=== PATIENT | male | born 1995 | race Caucasian/White ===

== ENCOUNTER 2019-10-13 15:09 | Emergency (ER) | payer OTHER, SELFPAY ==
--- NOTE | ~2019-10-13 | CT_ITS ---
EXAMINATION: CT abdomen pelvis w con DATE: 10/13/2019 16:24 INDICATION: Right lower quadrant abdominal pain. Nausea and diarrhea. TECHNIQUE: Computed tomography (CT) of the abdomen and pelvis was performed with 100 mL Omnipaque 350 intravenous contrast. Automated exposure control and iterative reconstruction technique were employe d. The dose-length product was 293.16 mGy-cm. COMPARISON: None. FINDINGS: The visualized portions of the lung bases are clear without pneumonia or pleural effusion. The heart size is normal. No pericardial effusion. There is a 1.7 cm cyst in the liver. The gallbladd er, spleen, pancreas, adrenal glands, and kidneys are normal. There are no dilated loops of bowel. Th e appendix is normal. There is mild fat stranding involving the greater omentum in right abdomen. The re is trace pelvic ascites. There are no pathologically enlarged lymph nodes. There is mild thoracal lumbar spondylosis. IMPRESSION: 1. Mild fat stranding involving the greater omentum in right abdomen, consistent with edema versus in flammation. Reviewed, dictated and finalized at location A. IMPRESSION: 1. Mild fat stranding involving the greater omentum in right abdomen, consisten t with edema versus inflammation.
[2019-10-13 15:12] VITALS: BP 112/56; PULSE 55; RESP 16; TEMP 37.4; O2SAT 99
--- NOTE | 2019-10-13 15:25 | ED.ABDPAIN ---
HPI - Abdominal Pain General Chief Complaint: Abdominal Pain Stated Complaint: abd pain Time Seen by Provider: 10/13/19 15:21 History of Present Illness HPI narrative: RLQ pain for 3 days. Worsening in severity. NO radiation. Exacerbated by movement especially with increasing abdominal pressure. Associated with nausea. He has never had this pain before. No previous surgeries. Related Data Allergies Allergy/AdvReac Type Severity Reaction Status Date / Time No Known Allergies Allergy Verified 10/13/19 15:23 Review of Systems Review of Systems: All systems reviewed & are unremarkable except as noted in HPI and below Constitutional: Constitutional: Denies fever(s) ENT: Denies sore throat Cardiovascular: Cardiovascular: Denies chest pain Respiratory: Respiratory: Denies dyspnea Gastrointestinal: Gastrointestinal: Reports abdominal pain, Denies constipation, Denies diarrhea and Reports nausea Genitourinary: Genitourinary: Denies dysuria Exam Const: General: healthy appearing, no acute distress, alert and diaphoretic Orientation/consciousness: patient oriented x3 HENMT: Head: normal to inspection Neck: Neck: normal visual inspection and no lymphadenopathy Chest: Chest palpation & inspection: no tenderness Resp: Effort & Inspection: normal respiratory effort Auscultation: clear to auscultation bilaterally, no rales, no rhonchi and no wheezes Cardio: Jugular venous distension: no JVD Rate: regular rate Rhythm: regular rhythm Heart sounds: no murmurs GI: Inspection: non-distended GI Palp: Yes Soft to palpation and No Tenderness to palpation present (GI) Skin: General skin exam: normal color Neuro: General: patient oriented x3 and moves all extremities Speech: normal speech Extrem: General: no edema Psych: Appearance: well kempt Affect: normal affect Course Vital Signs Vital signs: Vital Signs Temperature 37.4 C 10/13/19 15:12 Pulse Rate 55 L 10/13/19 15:12 Respiratory Rate 16 10/13/19 15:12 Blood Pressure 112/56 L 10/13/19 15:12 Pulse Oximetry 99 10/13/19 15:12 Temperature 37.4 C 10/13/19 15:12 Pulse Rate 56 L 10/13/19 15:28 Respiratory Rate 18 10/13/19 15:28 Blood Pressure 108/59 L 10/13/19 15:28 Pulse Oximetry 97 10/13/19 15:28 MDM - Abdominal Pain MDM Narrative Medical decision making narrative: Mild fat stranding. No acute process seen on CT. Labs reassuring. He should be safe for discharge. He can use NSAIDS for pain. Differential Diagnosis Differential diagnosis: Likely acute appendicitis and other (hernia) Medical Records Attestation: I reviewed the patient's medical records. Lab Data Attestation: I reviewed the patient's lab results. Result diagrams: 10/13/19 15:44 10/13/19 15:44 Labs: Lab Results 10/13/19 10/13/19 10/13/19 Range/Units 15:44 15:44 15:44 WBC 6.5 (4.5-10.0) K/mm3 RBC 4.52 L (4.6-6.20) M/mm3 Hgb 14.1 (14.0-18.0) g/dL Hct 41.1 L (42.0-52.0) % MCV 90.9 (80-100) fl MCH 31.2 (26-34) pg MCHC 34.3 (32-36) g/dl RDW 12.3 (11.5-14.5) % Plt Count 174 (150-375) k/mm3 MPV 11.4 H (7.4-10.4) fl Immature Gran % (Auto) 0.2 (0-0.5) % Neut % (Auto) 54.3 (45.5-73.1) % Lymph % (Auto) 32.2 (18.3-44.2) % [place] % (Auto) 8.5 (2.6-8.5) % Eos % (Auto) 4.5 H (0-4.4) % Baso % (Auto) 0.3 (0.2-1.2) % Lymph # (Auto) 2.09 (0.9-3.2) K/mm3 [place] # (Auto) 0.6 (0.1-0.6) K/mm3 Eos # (Auto) 0.3 (0-0.3) K/mm3 Baso # (Auto) 0.0 (0.0-0.1) K/mm3 Abs Immat Gran (auto) 0.01 (0.00-0.031) K/mm3 Absolute Neuts (auto) 3.5 (1.3-6.7) K/mm3 Absolute Nucleated RBC 0.0 (0.0-0.012) K/mm3 Nucleated RBC % 0.0 (0.0-0.2) % Sodium 138 (137-145) mmol/L Potassium 3.9 (3.4-5.0) mmol/L Chloride 103 (98-107) mmol/L Carbon Dioxide 28 (22-30) mmol/L BUN 11 (9-20) mg/dL Creatinine 0.90 (0.7-1.3) mg/dL Estim Creat
[2019-10-13 15:28] VITALS: BP 108/59; PULSE 56; RESP 18; O2SAT 97
--- NOTE | 2019-10-13 15:37 | PC.NURSE ---
pt ambulatory with steady gait to restroom at this time to provide urine specimen.
[2019-10-13 15:50] LABS: Basophils Percent Auto 0.3 % (0.2-1.2); Eosinophils Absolute Auto 0.3 K/mm3 (0-0.3); Eosinophils Percent Auto 4.5 % (0-4.4); Hematocrit 41.1 % (42.0-52.0); Hemoglobin 14.1 g/dL (14.0-18.0); Immature Granulocyte Absolute 0.01 K/mm3 (0.00-0.031); Immature Granulocyte Percent A 0.2 % (0-0.5); Lymphocytes Absolute Auto 2.09 K/mm3 (0.9-3.2); Lymphocytes Percent Auto 32.2 % (18.3-44.2); Mean Corpuscular HGB Conc 34.3 g/dl (32-36); Mean Corpuscular Hemoglobin 31.2 pg (26-34); Mean Corpuscular Volume 90.9 fl (80-100); Mean Platelet Volume 11.4 fl (7.4-10.4); Monocytes Absolute Auto 0.6 K/mm3 (0.1-0.6); Monocytes Percent Auto 8.5 % (2.6-8.5); Neutrophils Absolute Auto 3.5 K/mm3 (1.3-6.7); Neutrophils Percent Auto 54.3 % (45.5-73.1); Platelet Count Result 174 k/mm3 (150-375); Red Blood Count 4.52 M/mm3 (4.6-6.20); Red Cell Distribution Width 12.3 % (11.5-14.5); White Blood Count 6.5 K/mm3 (4.5-10.0)
[2019-10-13 15:54] LABS: Add Urine Microscopic? YES; Appearance Urine Clear (Clear); Bacteria Urine Trace /hpf; Bilirubin Urine Negative (Negative); Blood Urine Negative (Negative); Color Urine Yellow (Yellow); Glucose Urine UA Negative (Negative); Ketones Urine Negative (Negative); Leukocyte Esterase Ur Negative LEU/UL (Negative); Mucus Urine Rare /lpf; Nitrate Urine Negative (Negative); Protein Urine Negative (Negative); RBC Urine 0-2 /hpf (0-2); Specific Grav Ur 1.024 (1.001-1.035); Squamous Epithelial Cell Urine Rare /hpf (Few); Urobilinogen Urine Negative mg/dL (<2.0); WBC Urine 0-3 /hpf
[2019-10-13 16:01] LABS: Alanine Aminotransferase 14 U/L (4-50); Albumin Level 4.3 g/dL (3.5-5.1); Alkaline Phosphatase 62 U/L (38-126); Aspartate Amino Transferase 21 U/L (17-59); Bilirubin,Total 0.7 mg/dL (0.2-1.3); Blood Urea Nitrogen 11 mg/dL (9-20); Calcium 8.9 mg/dL (8.4-10.2); Carbon Dioxide 28 mmol/L (22-30); Chloride 103 mmol/L (98-107); Estimated CRCL calculation 111 ml/min; Estimated Glomerular Filt Rate > 60; Glucose 94 mg/dL (75-110); Lipase 48 U/L (23-300); Potassium 3.9 mmol/L (3.4-5.0); Sodium 138 mmol/L (137-145)
[2019-10-13] MEDS: KETOROLAC 30 MG/ML VIAL (*BKC) IV PUSH (16:43)
[2019-10-13 18:08] VITALS: BP 113/63; PULSE 75; RESP 18; O2SAT 98
== END 2019-10-13 18:09 | disposition home or self-care (01) ==
PROVIDERS: Emergency Provider Emergency Medicine
DX: R10.31 Right lower quadrant pain (principal)
CPT/HCPCS: 36415; 74177; 80053; 81001; 83690; 85025; 96374; 99284; J1885; Q9967

== ENCOUNTER 2019-12-18 00:45 | Outpatient (CLI) | payer OTHER, SELFPAY ==
[2019-12-18 17:08] LABS: SARS-CoV-2 RNA PCR Negative
== END 2019-12-18 00:46 | disposition home or self-care (01) ==
LOC: ANHCOVIDDT 00:45
PROVIDERS: PCP Emergency Medicine; Visit Provider Surgery
DX: Z01.812 Encounter for preprocedural laboratory examination (principal); Z20.828 Contact with and (suspected) exposure to other viral communicable diseases
CPT/HCPCS: 87635; C9803; U0003

== ENCOUNTER 2019-12-18 08:18 | Outpatient (CLI) | payer OTHER, SELFPAY | END 2019-12-18 08:19 | disposition home or self-care (01) | PROVIDERS: PCP Emergency Medicine; Visit Provider Surgery | DX: K40.90 Unilateral inguinal hernia, without obstruction or gangrene, not specified as recurrent (principal) | CPT/HCPCS: 36415; 86850; 86900; 86901 ==

== ENCOUNTER 2019-12-21 01:01 | Day surgery (SDC) | payer OTHER, SELFPAY ==
[2019-11-27 09:23] VITALS: BMI 21.0
--- NOTE | 2019-12-18 14:04 | WPDANESEPPF ---
Anes - Initial Pre Proc Eval Procedure: Operation Date: 12/21/19 07:30 Proposed Procedures p Robotic Assisted Laparoscopic Right Inguinal Hernia Repair With Mesh - Irene Steve MD Date/Time: 12/18/19 14:04 Surgeon: Irene Steve MD Pre Op Diagnosis: Right Inguinal Hernia Patient Data Age: 24 Gender: M Height: 6 ft Weight: 70.45 kg Allergies Allergy/AdvReac Type Severity Reaction Status Date / Time No Known Allergies Allergy Verified 01/06/20 09:54 Home Medications Medication Instructions Recorded Confirmed Type naproxen 500 mg PO BID PRN #30 tablet 10/13/19 12/21/19 Rx tramadol 50 mg PO Q4H PRN #30 tablet 12/21/19 Rx Patient hx anesthesia problems: none Family hx anesthesia problems: none PMFSH Past Medical History Medical History (Updated 01/06/20 @ 10:01 by Rhonda Trejo) Anxiety Depression Surgical History Surgical History H/O inguinal hernia repair 12/21/19 robotic assisted RIH repair Social History Social History Years smoked: 5 Smoking status: Former smoker Tobacco type: cigars Additional smoking assessment comments: QUIT CIGARS 1 YEAR AGO- CURRENTLY USES VAPOR CIGARETTE Alcohol intake: former Substance use: former Substance use type: crack/cocaine Other substance usage details: SOBER FROM COCAINE- 1 YEARS- OCCASIONAL MARIJUANA USE Additional occupation/education comments: construction Gender identity (if verbalized by the patient): Male Spiritual care concerns: No Anes - Eval Final PreProcedure Day of Procedure 12/18/19 14:04 Patient weight: normal Heart: regular rate and rhythm Lungs: clear to auscultation Airway: Mallampati scale class II Last oral intake: >/= 8 hours ASA classification: III Emergent: no Anesthetic plan: proceed Anesthesia type and monitoring: general and standard monitoring Informed Consent: The patient's anesthetic plan and its attendant risks and benefits were discussed with the patient/family/POA. Questions were solicited and answers provided to the satisfaction of the patient/family/POA.
[2019-12-21] VITALS (9 sets, daily range): BP systolic 109–123; BP diastolic 61–77; PULSE 56–81; RESP 14–20; TEMP 36.3–36.7; O2SAT 95–100
[2019-12-21] MEDS: LACTATED RINGERS 1,000 ML 30 ML IV CONT ×3 (07:15→10:14)
[2019-12-21] MEDS: ACETAMINOPHEN 500 MG TABLET 1000 MG PO (07:29)
[2019-12-21] MEDS: KETOROLAC 15 MG/ML VIAL (*BKC) IV PUSH (07:32)
--- NOTE | 2019-12-21 07:35 | WPDANESEPP ---
Anes - Eval Pre Procedure Procedure: Operation Date: 12/21/19 07:30 Proposed Procedures p Robotic Assisted Laparoscopic Right Inguinal Hernia Repair With Mesh - Irene Steve MD Date/Time: 12/21/19 07:35 Pre Op Diagnosis: Right Inguinal Hernia Patient Data Age: 24 Gender: M Height: 1.83 m Weight: 70.45 kg Allergies Allergy/AdvReac Type Severity Reaction Status Date / Time No Known Allergies Allergy Verified 11/27/19 09:23 Home Medications Medication Instructions Recorded Confirmed Type naproxen 500 mg PO BID PRN #30 tablet 10/13/19 12/21/19 Rx Patient hx anesthesia problems: none Family hx anesthesia problems: none PMFSH Past Medical History Medical History Anxiety Depression Social History Social History Years smoked: 5 Smoking status: Former smoker Tobacco type: cigars Additional smoking assessment comments: QUIT CIGARS 1 YEAR AGO- CURRENTLY USES VAPOR CIGARETTE Alcohol intake: former Alcohol use details: HISTORY ALCOHOL ABUSE- UNABLE TO QUANTIFY. SOBER 2 YEARS Substance use: former Substance use type: crack/cocaine Other substance usage details: SOBER FROM COCAINE- 1 YEARS- OCCASIONAL MARIJUANA USE Additional occupation/education comments: construction Gender identity (if verbalized by the patient): Male Spiritual care concerns: No Exam Day of Procedure 12/21/19 07:35 Patient weight: normal Heart: regular rate and rhythm Lungs: clear to auscultation Airway: Mallampati scale class 1 Neurological: alert and oriented
--- NOTE | 2019-12-21 07:36 | P.PNAN_ITS ---
Anes - Eval Final PreProcedure Day of Procedure 12/21/19 07:36 Patient weight: normal Heart: regular rate and rhythm Lungs: clear to auscultation Airway: Mallampati scale class II Neurological: alert and oriented Last oral intake: >/= 8 hours ASA classification: III Emergent: no Anesthetic plan: proceed Anesthesia type and monitoring: general ETT and standard monitoring Informed Consent: The patient's anesthetic plan and its attendant risks and b enefits were discussed with the patient/family/POA. Questions were solicited and answers provided to the satisfaction of the patient/family/POA.
--- NOTE | 2019-12-21 07:41 | WPDHPUPDATE1 ---
History and Physical Update Update Date/Time: 12/21/19 07:41 History and Physical has been reviewed, including an updated exam of the patient. There are NO changes in the patient's condition. Risks, benefits, and alternatives have been discussed and questions answered. Patient agrees to proceed with procedure.
--- NOTE | 2019-12-21 07:42 | PM.IMHP ---
H&P: HPI History of Present Illness Date/Time: 12/21/19 07:42 Chief complaint: Right Inguinal Hernia Narrative: Biju Myers is a 24 year old male presenting c [facility]. Pt reports bulging, discomfort in R groin over last few mos. Pt reports sx seem to be slowly worsening, suman during exertion, heavy activity. Review of Systems Constitutional: Constitutional: Denies anorexia, Denies chills, Denies fatigue, Denies headache(s), Denies malaise, Denies poor appetite, Denies weight gain and Denies weight loss Eyes: Eyes: Reports no additional eye complaints and Denies change in vision ENT: Reports system reviewed and no additional complaints, except as documented, Denies headache(s), Denies hearing loss and Denies sore throat Cardiovascular: Cardiovascular: Reports no additional cardiovascular complaints, Denies chest pain, Denies palpitations and Denies dyspnea Respiratory: Respiratory: Reports no additional respiratory complaints, Denies cough and Denies dyspnea Gastrointestinal: Gastrointestinal: Denies abdominal pain, Denies change in stool character, Denies constipation, Denies diarrhea, Denies nausea and Denies vomiting Genitourinary: Genitourinary: Denies dysuria, Denies urinary frequency and Denies urinary urgency Musculoskeletal: Musculoskeletal: Reports no additional musculoskeletal complaints Integumentary/Breasts: Skin/Breast: Reports system reviewed and no additional complaints, except as docu, Denies pruritus, Denies lesions and Denies wounds Neurologic: Reports system reviewed and no additional complaints, except as documented, Denies confusion and Denies headache(s) Psychiatric: Psychiatric: Reports no additional psychiatric complaints and Denies confusion Endocrine: Endocrine: Reports no additional endocrine complaints, Denies fatigue and Denies palpitations Hematologic/Lymphatic: Hematologic/Lymphatic: Reports no additional hematologic/lymphatic complaints Allergic/Immunologic: Allergic/Immunologic: Reports no additional allergic/immunologic complaints [facility] Past Medical History Medical History Anxiety Depression Social History Social History Years smoked: 5 Smoking status: Former smoker Tobacco type: cigars Additional smoking assessment comments: QUIT CIGARS 1 YEAR AGO- CURRENTLY USES VAPOR CIGARETTE Alcohol intake: former Alcohol use details: HISTORY ALCOHOL ABUSE- UNABLE TO QUANTIFY. SOBER 2 YEARS Substance use: former Substance use type: crack/cocaine Other substance usage details: SOBER FROM COCAINE- 1 YEARS- OCCASIONAL MARIJUANA USE Additional occupation/education comments: construction Gender identity (if verbalized by the patient): Male Spiritual care concerns: No Meds Home Medications and Allergies Home Medications Medication Instructions Recorded Confirmed Type naproxen 500 mg PO BID PRN #30 tablet 10/13/19 12/21/19 Rx Allergies Allergy/AdvReac Type Severity Reaction Status Date / Time No Known Allergies Allergy Verified 11/27/19 09:23 Vital Signs Vital Signs - 24 hr 12/21/19 07:33 Temperature 36.4 C Pulse Rate 77 Respiratory Rate 20 Blood Pressure 227/61 H Pulse Oximetry 99 Exam Const: General: cooperative, healthy appearing, no acute distress and well developed; No confusion Orientation/consciousness: patient oriented x3 and No confusion HENMT: Head: normal to inspection, normocephalic and atraumatic Mouth: Yes Normal oral and palatal mucosa present and Yes moist mucous membranes Teeth and gingiva: dentition normal Eyes: Conjunctivae: conjunctivae normal Pupils: Equal, round and reactive pupils present EOM: EOMs intact bilaterally Neck: Neck: normal visual inspection, full ROM, no lymphadenopathy, trachea midline and supple Lymphatic: no lymphadenopathy noted Chest: Chest palpation & inspection: normal inspection of
[2019-12-21] MEDS: ceFAZolin 2 GM/D5W 50 ML 2 GM/50 ML BAG IVPB (07:45)
[2019-12-21] MEDS: BUPIVACAINE/EPINEPHRINE 0.5% 30 ML VIAL INFILTRATE (08:19)
[2019-12-21] MEDS: fentaNYL CITRATE INJ (*CRX) 100 MCG/2 ML VIAL 25 MCG IV PUSH ×3 (10:04→10:23)
--- NOTE | 2019-12-21 10:08 | PM.PROC ---
Procedure Note - Detailed Date of procedure: 12/21/19 Pre-op diagnosis: Right Inguinal Hernia Post-op diagnosis: same Procedure performed: robotic assisted right inguinal hernia repair Description of procedure: Patient was brought into the operating room and placed in the supine position. After adequate induction of general anesthesia, the patient was prepped and draped in normal sterile fashion. A time-out was then done to verify the patient's identity, as well as the procedure being performed. Began by making a 8 mm incision in the supraumbilical region, a Veress needle was then placed into the peritoneal cavity. CO2 gas was then insufflated and after adequate pneumoperitoneum was achieved, the Veress needle was removed. I then placed an 8 mm trocar through this incision. I then placed the endoscope through this trocar site and under direct visualization placed 2 further 8 mm ports in the right and left mid abdomen. The [employer] robot was then docked to the 3 trocar sites. I then scrubbed out and went to the robotic console. Upon examining the pelvis, it was noted that the patient had a right inguinal hernia. I was able to reduce the preperitoneal fat with gentle retraction out of the hernia. Once this was done, I began by making a preperitoneal flap approximately 6 cm superior to the defect. This flap was carried medially past the umbilical ligaments in laterally to the transversalis. It then began dissection of my medial compartment taking this down to the pubic tubercle. I then began the lateral dissection taking this down to the transversalis fascia. Once these compartments were achieved, I began dissection around the cord structures. It was noted at this point that the patient had a indirect hernia. Patient also had a large lipoma the cord. Using careful dissection, was able to reduce the lipoma cord as well separate the indirect hernia off the cord structures. Once this was adequately done, I went ahead and placed a 15 x 10 piece of [employer] mesh into the abdominal cavity. The mesh was carefully positioned, centering the center of the mesh over the indirect defect. Once this was done, was very satisfied with our repair. I then closed the peritoneal flap with a running 2.0 V Lock suture. The abdomen was then desufflated, and all ports were removed. All incisions were then closed with the 4.0 monocryl suture. Dermabond was placed on each wound. The patient tolerated the procedure well, was extubated in the operating room postoperatively, and will now be transferred to the recovery room in stable condition. Implants: 15 x 10 progrip mesh Anesthesia: GETA Surgeon: Irene Steve MD Estimated blood loss (mL): 5 Drains: No Packing: No Pathology: none sent Complications: No immediate complications Condition: stable Disposition: PACU Findings: indirect RIH
--- NOTE | 2019-12-21 10:58 | SUR.PHASEII ---
1045- Assisted up to chair. c/o pain. Ice pack to right groin.
--- NOTE | 2019-12-21 12:06 | SUR.PHASEII ---
1205 PT DRESSED & MEETS ANESTHESIA DISCHARGE CRITERIA. WAITING ON RIDE HOME.
== END 2019-12-21 12:10 | disposition home or self-care (01) ==
PROVIDERS: PCP Emergency Medicine; Visit Provider Surgery
PROC: 8E0Y4CZ Robotic Assisted Procedure of Lower Extremity, Percutaneous Endoscopic Approach (ICD-10-PCS; CPT 49650; principal; 2019-12-21 07:30)
DX: K40.90 Unilateral inguinal hernia, without obstruction or gangrene, not specified as recurrent (principal); F17.290 Nicotine dependence, other tobacco product, uncomplicated
CPT/HCPCS: 49650; S2900; A9270; C1781; J0690; J1100; J1170; J1885; J2250; J2270; J2405; J2704; J3010; J7030; J7120